=== PATIENT | male | born 1985 | race Caucasian/White ===

== ENCOUNTER 2021-04-20 14:07 | Emergency (ER) | payer MEDICAID, OTHER ==
[~2021-04-20] VITALS: Ht 172.7 cm; Wt 109.1 kg
[2021-04-20 14:21] VITALS: BP 160/97
[2021-04-20] MEDS ORDERED: HYDROCODONE/ACETAMINOPHEN 5-325 MG TABLET PO ONE (15:00)
== END 2021-04-20 15:01 | disposition home or self-care (01) ==
LOC: EMS 14:07
DX: B02.9 Zoster without complications (principal); M54.6 Pain in thoracic spine; F12.90 Cannabis use, unspecified, uncomplicated
CPT/HCPCS: 99283